=== PATIENT | female | born 1955 | race Two or more races ===

== ENCOUNTER → 2019-02-05 | Outpatient (CLI) | payer OTHER ==
[~2019-02-05] MED LIST: ACET500 PO; ALBU90OI6 INH; ASPI325 PO; AZIT250 PO; Cyclobenzaprine5 MG PO; GRALISE600 MG PO; MOVANTIK12.5 MG PO; Norco 5-325 Ta1 EACH PO; OXYC5 PO; TRAM50 PO; ZOLP10 PO
[2019-02-09 14:07] LABS: HPV 16 Negative (Negative); HPV 18 Negative (Negative); HPV OTHER HR TYPES Negative (Negative)
== END | disposition home or self-care (01) ==
LOC: LAB SHORT 11:36 → LAB 11:36
PROVIDERS: Nurse Practitioner Women's Health
DX: Z12.4 Encounter for screening for malignant neoplasm of cervix (principal); Z91.89 Other specified personal risk factors, not elsewhere classified
CPT/HCPCS: 87624; G0123